=== PATIENT | male | born 1960 | race African-American/Black ===

== ENCOUNTER 2020-10-05 20:44 | Emergency (ER) | payer OTHER ==
--- OUTSIDE RECORDS SUMMARY | 2020-10-05 20:46 | XMS REPORT | Continuity of Care Document ---
:1960 Author Organization [facility] t Address [facility] Rohith Goff [address] [place] [address] Care Team Providers Name Role Phone CORI Attending Clinician Unavailable UNRULY Attending Clinician Unavailable Problems Condition Condition Condition Status Onset Resolution Last Treating Co mments Source Name Details Category Date Date Treatment Clinician Date No No Problem Active [facility] evidence evidence ity of of of [place] diabetic diabetic Physic i retinopath retinopath an s y y Diabetes Diabetes Problem Active Unive rs mellitus mellitus ity of type 2, type 2, [place] uncontroll uncontroll Ph ysici ed ed ans Diabetic Diabetic Problem Active Unive rs neuropathy neuropathy it y of , painful , painful [place] Phys[place] Diabetic Diabetic Problem Active Unive rs retinopath retinopath it y of y y [place] Physici ans HLD HLD Problem Active Univers (hyperlipi (hyperlipi it y of demia) demia) [place] Physici ans HTN HTN Problem Active Univers (hypertens (hypertens it y of ion), ion), [place] benign benign Physici ans Obesity Obesity Problem Active Univers (BMI (BMI ity of 30-39.9) 30-39.9) [place] Physici ans Allergies, Adverse Reactions, Alerts This patient has no known allergies or adverse reactions. Medications Ordered Filled Start Stop Current Ordering Indication Dosage Frequency Signature Comments Components Source Medication Medication Date Date Medication? Clinician (SIG) Name Name Levemir Levemir Yes PATRICIA 60 INJECT 60 Univers FlexTouch FlexTouch 2-14 [place] UNIT it y of 100 UNIT/ML 100 UNIT/ML 00:00: M.D. BEDTIME [place] Subcutaneou Subcutaneou 00 P hysici s Solution s Solution ans Pen-injecto Pen-injecto r r Gabapentin Gabapentin 2020-0 Yes PATRICIA Q0.3333D TAKE 1 Univers 300 MG Oral 300 MG Oral 1-06 [place] CAPSULE BY ity of Capsule Capsule 00:00: M.D. MOUTH 3 [place] 00 TIMES A Physici DAY ans Pravastatin Pravastatin Yes 1 QD TAKE 1 Univers Sodium 40 Sodium 40 TABLET ity of MG Oral MG Oral DAILY [place] Tablet Tablet Physici ans Lisinopril- Lisinopril- Yes QD TAKE 1 Univers hydroCHLORO hydroCHLORO TABLET ity of thiazide thiazide ONCE [place] 20-25 MG 20-25 MG DAILY. Physi ci Oral Tablet Oral Tablet a ns metFORMIN metFORMIN Yes 2 Q0.5D TAKE 2 Un tenisha HCl - 500 HCl - 500 TABLET ity of MG Oral MG Oral TWICE [place] Tablet Tablet DAILY Physici ans traMADol traMADol Yes 1 QD TAKE 1 Unive rs HCl - 50 MG HCl - 50 MG TABLET ity of Oral Tablet Oral Tablet DAILY [place] Physici ans [place] Yes Q0.5D TAKE Univers 7.5-325 MG 7.5-325 MG TABLET i ty of TABS TABS TWICE [place] DAILY Physici ans tiZANidine tiZANidine Yes 1 QD TAKE 1 U nivers HCl - 4 MG HCl - 4 MG TABLET i ty of Oral Tablet Oral Tablet DAILY [place] Physici ans Vital Signs Vital Name Observation Time Observation Value Comments Source BP Systolic 2019-06-24 136 mm[Hg] Location: [facility] 13:23:00 Position: [place] Physician s Sitting BP Diastolic 2019-06-24 85 mm[Hg] Location: [facility] 13:23:00 Position: [place] Physician s Sitting Height 2019-06-24 66.5 [in_us] [facility] :23:00 [place] Physician s Weight 2019-06-24 232.5 [lb_av] [facility] :23:00 [place] Physician s Body Mass Index 2019-06-24 36.96 kg/m2 University o f Calculated 13:23:00 [place] Physician s Temperature 2019-06-24 98.3 [degF] Method: Oral [facility] :: [place] Physician s Heart Rate 2019-06-24 73 /min Location: L [facility] 13::00 Brachial [place] Physician s Artery; Procedures Procedure Date / Time Performed Performing Clinician Sourc e [facility] CMP W/EGFR 2019-06-24 00:00:00 [facility] Physicians [QLH] HEMOGLOBIN A1c 2019-06-24 00:00:00 [facility] Physicians [QLH] LIPID PANEL 2019-06-24 00:00:00 [facility] Physicians [QL] MICROALBUMIN, 2019-06-24 00:00:00 [facility] RANDOM URINE Physicians (W/CREATININE) [QLH] T4, FREE 2019-06-24 00:00:00 [facility] Physicians [QL] TSH, 3RD 2019-06-24 00:00:00 [place] [facility] GENERATION Physicians [QL] VITAMIN D, 2019-06-24 00:00:00 [facility] 25-HYDROXY, LC/MS/MS Physicians History of Hernia [facility] Repair Physicians History of Finger [facility] surgical procedure Physicians Encounters Start End Encounter Admission Attending Care Care Encounter Source Date/Time Date/Time Type Type Clinicians Facility Department ID 2019-09-18 2019-09-18 AppointYENY Lee Multispecia [id number] Univers 13:00:00 13:00:00 t; dayo GOMEZ M.D. [place] AUBREY, Physici M.D. ans 2019-07-31 2019-07-31 Appointmen UNRULY [facility] [id number] Univers 10:30:00 10:30:00 t; FRANCHESKA TOLLIVER ity o f CYNTHIA, R.N. [place] R.N. Physicseth ans 2019-06-24 2019-06-24 AppointYENY Lee Multispecia [id number] Univers 13:00:00 13:00:00 t; dayo GOMEZ M.D. [facility] James Mo M.D. ans Results Test Description Test Time Test Comments Results Result Comments Source Glucose (Point of Care In Office) 2019-06-24 13:36:00 Test Item Value Reference Range Interpretation Comme nts Glucose POC [facility]es[facility] (test code = Glucose POC Lifescan) 215 A [facility] Physicians[O] Hemoglobin A1c (in office)2019-06-24 13:35:00 Test Item Value Reference Range Interpretation Comments HEMOGLOBIN A1c; Abnormal (test code = 13.2 A 4548-4) [facility] PhysiciansNegative Retinal Eye Exam (Diabetic)2018-11-22 06:00:00 Test Item Value Reference Range Interpretation Comments Negative Diabetic Eye Screening 22Nov2018 (test code = Negative Diabetic Eye Screening) [facility] Physicians
[2020-10-05] MEDS ORDERED: NA CHLORIDE 0.9% 1,000 ML ONE (23:30)
[2020-10-05] MEDS ORDERED: ONDANSETRON 4 MG/2 ML VIAL ONE (23:30)
[2020-10-05] MEDS ORDERED: MORPHINE 4 MG/ML SYR ONE (23:30)
[2020-10-06 00:16] LABS: ALT/SGPT 86 U/L (12-78); AST/SGOT 55 U/L (15-37); Albumin 3.2 g/dL (3.4-5.0); Alkaline Phosphatase 123 U/L (45-117); BUN Blood Urea Nitrogen 11 mg/dL (7-18); Bicarbonate 28 mmol/L (21-32); Bilirubin Direct 0.2 mg/dL (0-0.2); Bilirubin Total 0.8 mg/dL (0.2-1.0); Glucose Level 174 mg/dL (74-106); Lipase 32 U/L (73-393); Potassium 4.4 mmol/L (3.5-5.1); Protein, Total 7.1 g/dL (6.4-8.2); Sodium Level 136 mmol/L (136-145)
[2020-10-06 00:29] LABS: SARS-COV-2 RT PCR NEGATIVE (NEGATIVE)
[2020-10-06 00:34] LABS: Absolute Lymphocytes (CBC) 1.8 K/uL (0.7-4.9); Basophils % 0.6 % (0-1.3); Hematocrit 40.8 % (39.6-49.0); Lymphocytes % 9.2 % (15.3-44.8); MPV 10.1 fL (7.6-11.3)
[2020-10-06 00:34] LABS: Urine Blood Negative (Negative); Urine Glucose Trace (Negative); Urine Protein Negative (Negative); Urine pH 6.5 (5.0-7.0)
[2020-10-06 01:34] LABS: Urine RBC <5 /HPF (NONE SEEN); Urine Trichomonas PRESENT (NONE SEEN)
[2020-10-06 01:35] LABS: Urine Bacteria >50 /HPF (NONE SEEN)
--- NOTE | 2020-10-06 01:57 | EDPHYS ---
Physician Documentation [facility] Name: Matias Hudson Age: 60 yrs Sex: Male : 1960 Arrival Date: 10/05/2020 Time: 20:47 Bed 6 Private MD: ED Physician Brian Villarreal HPI: 10/06 00:00 This 60 yrs old Black Male presents to ER via Wheelchair with complaints of Decreased pm1 Appetite, Pain All Over. 00:00 The patient presents with urinary symptoms, burning with urination. Onset: The pm1 symptoms/episode began/occurred 8 day(s) ago. Modifying factors: The symptoms are alleviated by nothing, the symptoms are aggravated by urinating. Associated signs and symptoms: Pertinent positives: fever, flank pain, suprapubic pain. Severity of symptoms: in the emergency department the symptoms are actually worse. The patient has not experienced similar symptoms in the past. The patient has not recently seen a physician, the patient's primary care provider is Dr. Valentino. Historical: - Allergies: 10/05 21:29 No Known Allergies; jb4 - Home Meds: 21:29 Flomax Oral [Active]; Lisinopril Oral [Active]; Metformin Oral [Active]; gabapentin jb4 oral oral [Active]; - PMHx: 21:29 Diabetes - NIDDM; Hypertension; Chronic pain; BPH; jb4 - PSHx: 21:29 finger surgery; Hernia repair; jb4 - Immunization history:: Adult Immunizations unknown. - Social history:: Smoking status: Patient reports the use of cigarette tobacco products, denies chronic smoking, but will smoke occasionally, Patient/guardian denies using alcohol, street drugs. ROS: 10/06 00:00 Neck: Negative for injury, pain, and swelling, Cardiovascular: Negative for chest pain, pm1 palpitations, and edema, Respiratory: Negative for shortness of breath, cough, wheezing, and pleuritic chest pain. MS/Extremity: Negative for injury and deformity, Skin: Negative for injury, rash, and discoloration, Neuro: Negative for headache, weakness, numbness, tingling, and seizure. Constitutional: Positive for body aches, chills, Negative for poor PO intake. Abdomen/GI: Positive for abdominal pain, of the suprapubic area, Vomiting x 2, Negative for diarrhea, constipation. Back: Positive for flank pain, on the left. : Positive for burning with urination, Negative for penile discharge. Exam: 00:00 Constitutional: This is a well developed, well nourished patient who is awake, alert, pm1 and in no acute distress. Head/Face: Normocephalic, atraumatic. 00:00 Back: No spinal tenderness. No costovertebral tenderness. Full range of motion. Skin: Warm, dry with normal turgor. Normal color with no rashes, no lesions, and no evidence of cellulitis. MS/ Extremity: Pulses equal, no cyanosis. Neurovascular intact. Full, normal range of motion. 00:00 Cardiovascular: Exam negative for acute changes, Rate: normal, Rhythm: regular, Pulses: no pulse deficits are appreciated. 00:00 Respiratory: Exam negative for acute changes, respiratory distress, shortness of breath. 00:00 Abdomen/GI: Inspection: abdomen appears normal, Palpation: soft, in all quadrants, mild abdominal tenderness, in the suprapubic area. 00:00 Neuro: Exam negative for acute changes, Orientation: is normal, Mentation: is normal, Motor: is normal, moves all fours. Vital Signs: 10/05 21:25 BP 152 / 95; Pulse 100; Resp 17; Temp 99.3(O); Pulse Ox 98% on R/A; Weight 81.65 kg; jb4 Height 5 ft. 11 in. (180.34 cm); Pain 10/10; 23:44 BP 113 / 68; Pulse 86; Resp 18; Pulse Ox 100% on R/A; mg2 10/06 01:11 BP 141 / 84; Pulse 82; Resp 18; Pulse Ox 99% on R/A; mg2 02:26 BP 137 / 82; Pulse 83; Resp 18; Pulse Ox 98% on R/A; wh 10/05 21:25 Body Mass Index 25.10 (81.65 kg, 180.34 cm) jb4 MDM: 10/05 23:00 Patient medically screened. [facility] 10/06 01:55 Data reviewed: vital signs. Data interpreted: Pulse oximetry: on room air is 99 %. pm1 Interpretation: normal. Counseling: I had a detailed discussion with the patient and/or guardian regarding: the historical points, exam findings, and any diagnostic results supporting the discharge/admit diagnosis, lab results, radiology results, the need for outpatient follow up, to return to the emergency department if symptoms worsen or persist or if there are any questions or concerns that arise at home. 01:55 ED course: Offered admission to the patient. He would like to go home. Discussed return pm1 precautions with the patient and his . 10/05 23:07 Order name: Basic Metabolic Panel; Complete Time: 00:28 pm1 10/05 23:07 Order name: CBC with Diff; Complete Time: 00:44 pm1 10/05 23:07 Order name: Hepatic Function; Complete Time: 00:28 pm1 10/05 23:07 Order name: Lipase; Complete Time: 00:28 pm1 10/05 23:07 Order name: Urine Microscopic Only; Complete Time: 01:53 pm1 10/05 23:07 Order name: CT Abd/Pelvis - IV Contrast Only pm1 10/06 00:29 Order name: COVID-19/FLU A+B; Complete Time: 00:44 EDMS 10/06 00:33 Order name: Urine Dipstick-Ancillary; Complete Time: 00:44 EDMS 10/06 01:36 Order name: Urine Culture [facility] 10/05 23:07 Order name: IV Saline Lock; Complete Time: 23:43 pm1 10/05 23:07 Order name: Labs collected and sent; Complete Time: 23:43 pm1 10/05 23:07 Order name: Urine Dipstick-Ancillary (obtain specimen); Complete Time: 00:33 pm1 Administered Medications: 10/05 23:42 Drug: morphine 4 mg Route: IVP; Site: left forearm; [facility] 10/06 02:28 Follow up: Response: No adverse reaction; Pain is decreased; RASS: Alert and Calm (0) 10/05 23:42 Drug: Zofran (Ondansetron) 4 mg Route: IVP; Site: left forearm; mg2 10/06 02:28 Follow up: Response: No adverse reaction 10/05 23:42 Drug: NS 0.9% 1000 ml Route: IV; Rate: 1000 ml; Site: left forearm; mg2 10/06 02:28 Follow up: IV Status: Completed infusion 02:13 Drug: Rocephin (cefTRIAXone) 1 grams Route: IV; Rate: calculated rate; Site: left wh forearm; 02:27 Follow up: Response: No adverse reaction; IV Status: Completed infusion 02:13 Drug: Flagyl (metroNIDAZOLE) 2 grams Route: PO; 02:27 Follow up: Response: No adverse reaction Disposition: 10:41 Co-signature as Attending Physician, Brian Villarreal MD I agree with the assessment and [facility] plan of care. Disposition: 10/06/20 01:56 Discharged to Home. Impression: Trichomoniasis, Urinary tract infection, site not specified. - Condition is Stable. - Discharge Instructions: Trichomoniasis, Urinary Tract Infection, Adult. - Prescriptions for Cipro 500 mg Oral Tablet - take 1 tablet by ORAL route every 12 hours for 10 days; 20 tablet. Tylenol- Codeine #3 300-30 mg Oral Tablet - take 2 tablets by ORAL route every 4-6 hours As needed; 20 tablet. Zofran ODT 4 mg Oral tablet,disintegrating - place 1 tablet by TRANSLINGUAL route every 8 hours As needed; 12 tablet. - Medication Reconciliation Form, Thank You Letter, Antibiotic Education, Prescription Opioid Use form. - Follow up: Emergency Department; When: As needed; Reason: Worsening of condition. Follow up: Private Physician; When: 2 - 3 days; Reason: Recheck today's complaints, Continuance of care, Re-evaluation by your physician. - Problem is new. - Symptoms have improved. Signatures: Dispatcher [employer] Brian Knight MD MD cha Marinas, Patrick, JAIDA AUTO TRANSMISSION TECHNICIAN pm1 Sandro Moran RN RN jb4 Андрей Valdez RN RN Alexis Zamudio RN RN mg2 Corrections: (The following items were deleted from the chart) 10/05 23:31 23:08 CORONAVIRUS+MR.LAB.BRZ ordered. [facility] 23:32 23:08 Influenza Screen (A \T\ B)+BA.LAB.BRZ ordered. [facility] 10/06 02:28 01:56 10/06/2020 01:56 Discharged to Home. Impression: Trichomoniasis; Urinary tract infection, site not specified. Condition is Stable. Forms are Medication Reconciliation Form, Thank You Letter, Antibiotic Education, Prescription Opioid Use. Follow up: Emergency Department; When: As needed; Reason: Worsening of condition. Follow up: Private Physician; When: 2 - 3 days; Reason: Recheck today's complaints, Continuance of care, Re-evaluation by your physician. Problem is new. Symptoms have improved. pm1
--- NOTE | 2020-10-06 01:57 | ER ---
Nurse's Notes [facility] Name: Matias Hudson Age: 60 yrs Sex: Male : 1960 Arrival Date: 10/05/2020 Time: 20:47 Bed 6 Private MD: Diagnosis: Trichomoniasis;Urinary tract infection, site not specified Presentation: 10/05 21:23 Chief complaint: Patient states: something is wrong with my stomach and the Dr took me jb4 off all my medications 8 months ago and I have high blood pressure and I am diabetic. I couldn't see the Dr because I didn't go to see him for a check up. Now my back is hurting and when I urinate it baker. It has been going on for 2 to 3 weeks. Coronavirus screen: Client denies travel out of the [place] in the last 14 days. Ebola Screen: Patient negative for fever greater than or equal to 101.5 degrees Fahrenheit, and additional compatible Ebola Virus Disease symptoms Patient denies exposure to infectious person. Patient denies travel to an Ebola-affected area in the 21 days before illness onset. Initial Sepsis Screen: Does the patient meet any 2 criteria? No. Patient's initial sepsis screen is negative. Does the patient have a suspected source of infection? No. Patient's initial sepsis screen is negative. Risk Assessment: Do you want to hurt yourself or someone else? Patient reports no desire to harm self or others. Onset of symptoms is unknown. 21:23 Method Of Arrival: Wheelchair jb4 21:23 Acuity: LONG 3 jb4 Historical: - Allergies: 21:29 No Known Allergies; jb4 - Home Meds: 21:29 Flomax Oral [Active]; Lisinopril Oral [Active]; Metformin Oral [Active]; gabapentin jb4 oral oral [Active]; - PMHx: 21:29 Diabetes - NIDDM; Hypertension; Chronic pain; BPH; jb4 - PSHx: 21:29 finger surgery; Hernia repair; jb4 - Immunization history:: Adult Immunizations unknown. - Social history:: Smoking status: Patient reports the use of cigarette tobacco products, denies chronic smoking, but will smoke occasionally, Patient/guardian denies using alcohol, street drugs. Screenin:44 Abuse screen: Denies threats or abuse. Denies injuries from another. Nutritional mg2 screening: No deficits noted. Tuberculosis screening: No symptoms or risk factors identified. Fall Risk IV access (20 points). Assessment: 23:43 General: Appears in no apparent distress. comfortable, Behavior is calm, cooperative. mg2 Pain: Complains of pain in abdomen and testicles. Neuro: Level of Consciousness is awake, alert, obeys commands, Oriented to person, place, time, situation. Cardiovascular: Capillary refill < 3 seconds Patient's skin is warm and dry. Respiratory: Airway is patent Respiratory effort is even, unlabored, Respiratory pattern is regular, symmetrical. GI: Reports lower abdominal pain, upper abdominal pain. : Reports burning with urination, pain testicle. EENT: No signs and/or symptoms were reported regarding the EENT system. Derm: Skin is intact, is healthy with good turgor, Skin is pink, warm \T\ dry. normal. Musculoskeletal: Circulation, motion, and sensation intact. Capillary refill < 3 seconds. 10/06 01:11 Reassessment: Patient appears in no apparent distress at this time. Patient and/or mg2 family updated on plan of care and expected duration. Pain level reassessed. Patient is alert, oriented x 3, equal unlabored respirations, skin warm/dry/pink. 02:26 Reassessment: Patient appears in no apparent distress at this time. Patient and/or wh family updated on plan of care and expected duration. Pain level reassessed. Patient is alert, oriented x 3, equal unlabored respirations, skin warm/dry/pink. Vital Signs: 10/05 21:25 BP 152 / 95; Pulse 100; Resp 17; Temp 99.3(O); Pulse Ox 98% on R/A; Weight 81.65 kg; jb4 Height 5 ft. 11 in. (180.34 cm); Pain 10/10; 23:44 BP 113 / 68; Pulse 86; Resp 18; Pulse Ox 100% on R/A; mg2 10/06 01:11 BP 141 / 84; Pulse 82; Resp 18; Pulse Ox 99% on R/A; mg2 02:26 BP 137 / 82; Pulse 83; Resp 18; Pulse Ox 98% on R/A; wh 10/05 21:25 Body Mass Index 25.10 (81.65 kg, 180.34 cm) [facility] ED Course: 10/05 20:47 Patient arrived in ED. cl3 21:25 Triage completed. jb4 21:29 Arm band placed on right wrist. jb4 22:54 Anoop Smith NP is PHCP. pm1 22:54 Brian Villarreal MD is Attending Physician. pm1 23:10 Alexis Zamudio RN is Primary Nurse. mg2 23:40 Inserted saline lock: 20 gauge in left forearm, using aseptic technique. Blood mg2 collected. 23:44 Patient has correct armband on for positive identification. Pulse ox on. NIBP on. mg2 23:44 No provider procedures requiring assistance completed. mg2 10/06 00:54 CT Abd/Pelvis - IV Contrast Only In Process Unspecified. EDMS 02:27 IV discontinued, intact, bleeding controlled, No redness/swelling at site. Administered Medications: 10/05 23:42 Drug: morphine 4 mg Route: IVP; Site: left forearm; [facility] 10/06 02:28 Follow up: Response: No adverse reaction; Pain is decreased; RASS: Alert and Calm (0) 10/05 23:42 Drug: Zofran (Ondansetron) 4 mg Route: IVP; Site: left forearm; [facility] 10/06 02:28 Follow up: Response: No adverse reaction 10/05 23:42 Drug: NS 0.9% 1000 ml Route: IV; Rate: 1000 ml; Site: left forearm; [facility] 10/06 02:28 Follow up: IV Status: Completed infusion 02:13 Drug: Rocephin (cefTRIAXone) 1 grams Route: IV; Rate: calculated rate; Site: left forearm; 02:27 Follow up: Response: No adverse reaction; IV Status: Completed infusion 02:13 Drug: Flagyl (metroNIDAZOLE) 2 grams Route: PO; 02:27 Follow up: Response: No adverse reaction Outcome: 01:56 Discharge ordered by MD. pm1 02:27 Discharged to home ambulatory, with family. 02:27 Condition: stable 02:27 Discharge instructions given to patient, family, Instructed on discharge instructions, follow up and referral plans. no drinking with medication, no driving heavy equipment, medication usage, POC Demonstrated understanding of instructions, follow-up care, medications, POC Prescriptions given X 3. 02:28 Patient left the ED. Signatures: Dispatcher [employer] EDWA Anoop Smith NP CASH REGISTER OPERATOR pm1 Sandro Moran, RN RN jb4 Андрей Valdez, RN RN wh Alexis Zamudio, RN RN mg2 Cy Haider cl3
[2020-10-06] MEDS ORDERED: metroNIDAZOLE 500 MG TABLET ONE (02:18)
[2020-10-06] MEDS ORDERED: CEFTRIAXONE/SWI 1gm 1 GM/10 ML SYR ONE (02:19)
[2020-10-06 04:24] VITALS: TEMP 99.3
[2020-10-06 04:28] VITALS: BP 137/82; O2SAT 98
--- NOTE | 2020-10-06 11:33 | RAD REPORT ---
EXAM DESCRIPTION: CT - Abdomen Pelvis W Contrast - 10/06/2020 7:05 am CLINICAL HISTORY: The patient is 60 years old and is Male; dysuria;Flank pain;Fever TECHNIQUE: Axial computed tomography images of the abdomen and pelvis with intravenous contrast. S agittal and coronal reformatted images were created and reviewed. This CT exam was performed using one or more of the following dose reduction techniques: automated exposure control, adjustment of t he mA and/or kV according to patient size, and/or use of iterative reconstruction technique. COMPARISON: CT abdomen pelvis 03/05/2019. FINDINGS: Lung bases: Unremarkable. No mass. No consolidation. ABDOMEN: Liver: Unremarkable. No mass. Gallbladder and bile ducts: Unremarkable. No calcified stones. No ductal dilation. Pancreas: Unremarkable. No mass. No ductal dilation. Spleen: Unremarkable. No splenomegaly. Adrenals: Redemonstration of a prominent appearing left adrenal gland and possibly underlying 1 c m indeterminate adrenal nodule. Consider adrenal protocol CT for further evaluation if clinically ind icated. Kidneys and ureters: Mild bilateral renal pelviectasis. Stable 2 cm simple appearing right renal cyst which requires no imaging follow-up. No hydronephrosis. Stomach and bowel: Unremarkable. No obstruction. No mucosal thickening. PELVIS: Appendix: No findings to suggest acute appendicitis. Bladder: There may be mild bladder wall thickening anteriorly. Reproductive: Unremarkable as visualized. ABDOMEN and PELVIS: Intraperitoneal space: Unremarkable. No free air. No significant fluid collection. Bones/joints: No acute fracture. No dislocation. Soft tissues: Unremarkable. Vasculature: Scattered atherosclerotic vascular calcifications. No abdominal aortic aneurysm. Lymph nodes: Unremarkable. No enlarged lymph nodes. IMPRESSION: 1. Mild bilateral renal pelviectasis. 2. There may be mild bladder wall thickening anteriorly. Electronically signed by: Clay Bright MD 10/06/2020 1:26 AM CDT Due to temporary technical issues with the PACS/Fluency reporting system, reports are being signed by the in house radiologists without review as a courtesy to insure prompt reporting. The interpreting radiologist is fully responsible for the content of the report.
== END 2020-10-06 02:28 | disposition home or self-care (01) ==
LOC: ER 20:44
DX: N39.0 Urinary tract infection, site not specified (principal); A59.9 Trichomoniasis, unspecified; I10 Essential (primary) hypertension; E11.9 Type 2 diabetes mellitus without complications; Z20.822 Contact with and (suspected) exposure to COVID-19
CPT/HCPCS: 87088; 85025; 87086; 80048; 36415; 80076; 83690; 0240U; 74177; Q9967; J0696; J7030; J2405; 81003; 81015; 96361; 96374; 96375; 99284

== ENCOUNTER 2020-10-20 21:37 | Emergency (ER) | payer OTHER ==
--- OUTSIDE RECORDS SUMMARY | 2020-10-20 21:40 | XMS REPORT | Continuity of Care Document ---
:[address] [facility] t Address [facility] [address] [place] [address] Care Team Providers Name Role Phone CORI [...] (hypertens (hypertens it y of ion), ion), [place] benign benign Physici ans Obesity Obesity Problem [...] Tablet Oral Tablet DAILY [place] [facility] [place] Bowdon Yes Q0.5D TAKE Univers 7.5-325 MG 7.5-325 MG TABLET i ty of TABS TABS TWICE [place] DAILY Physici ans tiZANidine tiZANidine Yes 1 QD TAKE 1 U nivers HCl - 4 MG HCl - 4 MG TABLET i ty of Oral Tablet Oral Tablet DAILY [place] Physici ans Vital Signs Vital Name Observation Time Observation Value Comments Source BP Systolic 2019-06-24 136 mm[Hg] Location: [facility] 13:23:00 Position: [place] Physician s Sitting BP Diastolic 2019-06-24 85 mm[Hg] Location: [facility] 13:23:00 Position: [place] Physician s Sitting Height 2019-06-24 66.5 [in_us] [facility] :23:00 [place] Physician s Weight 2019-06-24 232.5 [lb_av] [facility] :23:00 [place] Physician s Body Mass Index 2019-06-24 36.96 kg/m2 University o f Calculated 13:23:00 [place] Physician s Temperature 2019-06-24 98.3 [degF] Method: Oral [facility] :: [place] Physician s Heart Rate 2019-06-24 73 /min Location: L [facility] 13::00 Brachial [place] Physician s Artery; Procedures Procedure Date / Time Performed Performing Clinician Sourc e [[facility]] CMP W/EGFR 2019-06-24 00:00:00 [facility] Physicians [QL] HEMOGLOBIN A1c 2019-06-24 00:00:00 [facility] Physicians [QL] LIPID PANEL 2019-06-24 00:00:00 [facility] Physicians [QL] MICROALBUMIN, 2019-06-24 00:00:00 [facility] RANDOM URINE Physicians (W/CREATININE) [QL] T4, FREE 2019-06-24 00:00:00 [place] [facility] Physicians [QL] TSH, 3RD 2019-06-24 00:00:00 [place] f [place] GENERATION Physicians [QL] VITAMIN D, 2019-06-24 00:00:00 [facility] 25-HYDROXY, LC/MS/MS Physicians History of Hernia [facility] Repair Physicians History of Finger [facility] surgical procedure Physicians Encounters Start End Encounter Admission Attending Care Care Encounter Source Date/Time Date/Time Type Type Clinicians Facility Department ID 2019-09-18 2019-09-18 AppointYENY Lee Multispecia [id number] [facility] 13:00:00 13:00:00 t; dayo GOMEZ M.D. [place] AUBREY, Physici M.D. ans 2019-07-31 2019-07-31 Appointmen [facility] [id number] Univers 10:30:00 10:30:00 t; FRANCHESKA TOLLIVER ity o f CYNTHIA, R.N. [place] R.N. Physicseth ans 2019-06-24 2019-06-24 AppointYENY Lee Multispecia [id number] Univers 13:00:00 13:00:00 t; dayo GOMEZ M.D. [facility] James GOMEZ M.D. ans Results Test Description Test Time Test Comments Results Result Comments Source Glucose (Point of Care In Office) 2019-06-24 13:36:00 Test Item Value Reference Range Interpretation Comme nts Glucose POC Lifescan (test code = Glucose POC Lifescan) 215 A [facility] Physicians[O] Hemoglobin A1c (in office)2019-06-24 13:35:00 Test Item Value Reference Range Interpretation Comments HEMOGLOBIN A1c; Abnormal (test code = 13.2 A 4548-4) [facility] PhysiciansNegative Retinal Eye Exam (Diabetic)2018-11-22 06:00:00 Test Item Value Reference Range Interpretation Comments Negative Diabetic Eye Screening [id number] (test code = Negative Diabetic Eye Screening) [facility] Physicians
[2020-10-20 23:03] LABS: Urine Blood Negative (Negative); Urine Glucose Negative (Negative); Urine Protein Negative (Negative); Urine pH 5.5 (5.0-7.0)
[2020-10-20 23:18] LABS: Urine Mucus 2+ /HPF (NONE SEEN)
[2020-10-20 23:19] LABS: Urine Bacteria <20 /HPF (NONE SEEN); Urine RBC <5 /HPF (NONE SEEN)
--- NOTE | 2020-10-20 23:25 | EDPHYS ---
Physician Documentation [facility] Name: Matias Hudson Age: 60 yrs Sex: Male : 1960 Arrival Date: 10/20/2020 Time: 21:41 Bed 15 Private MD: Jack Valentino ED Physician Surya Nieto HPI: 10/20 22:33 This 60 yrs old Black Male presents to ER via Wheelchair with complaints of Syncope, rn Urinary Retention. 22:33 The patient presents with urinary symptoms, retention, unable to void. Onset: The rn symptoms/episode began/occurred today. Modifying factors: The symptoms are alleviated by nothing, the symptoms are aggravated by nothing. Severity of symptoms: At their worst the symptoms were moderate, in the emergency department the symptoms are unchanged. The patient has experienced similar episodes in the past. The patient has been recently seen by a physician:. Reports just had catheter pulled out today at Dr. Rm's office, not able to urinate since then. NO fever. + known enlarged prostate.. Historical: - Allergies: 22:15 No Known Allergies; jb4 - Home Meds: 22:15 Flomax Oral [Active]; gabapentin Oral [Active]; lisinopril Oral [Active]; Metformin jb4 Oral [Active]; - PMHx: 22:15 BPH; Chronic pain; Diabetes - NIDDM; Hypertension; jb4 - PSHx: 22:15 finger surgery; Hernia repair; jb4 - Immunization history:: Adult Immunizations up to date. - Social history:: Smoking status: Patient reports the use of cigarette tobacco products, smokes .3 packs per day, Patient/guardian denies using alcohol, street drugs. - Family history:: not pertinent. - Hospitalizations: : No recent hospitalization is reported. ROS: 22:33 Constitutional: Negative for fever, chills, and weight loss, Eyes: Negative for injury, rn pain, redness, and discharge, Abdomen/GI: + suprapubic pain : + inability to urinate Neuro: Negative for weakness, numbness, tingling Exam: 22:33 Constitutional: This is a well developed, well nourished patient who is awake, alert, rn and in no acute distress. Abdomen/GI: soft, + suprapubic fullness Male : + focal tenderness of scrotum or skin changes Vital Signs: 22:12 BP 121 / 62; Pulse 100; Resp 18; Temp 98.8(TE); Pulse Ox 98% on R/A; Weight 83.01 kg jb4 (R); Height 5 ft. 11 in. (180.34 cm); Pain 10/10; 23:54 BP 117 / 64; Pulse 84; Resp 16; Pulse Ox 98% on R/A; jm8 22:12 Body Mass Index 25.52 (83.01 kg, 180.34 cm) jb4 MDM: 22:22 Patient medically screened. rn 23:23 Differential diagnosis: UTI, urinary retention, prostatitis, urethritis. Data reviewed: rn vital signs, nurses notes, lab test result(s), and as a result, I will discharge patient. Counseling: I had a detailed discussion with the patient and/or guardian regarding: the historical points, exam findings, and any diagnostic results supporting the discharge/admit diagnosis, the need for outpatient follow up, to return to the emergency department if symptoms worsen or persist or if there are any questions or concerns that arise at home. Response to treatment: the patient's symptoms have markedly improved after treatment, and as a result, I will discharge patient. Special discussion: I discussed with the patient/guardian in detail that at this point there is no indication for admission to the hospital. It is understood, however, that if the symptoms persist or worsen the patient needs to return immediately for re-evaluation. Based on the history and exam findings, there is no indication for further emergent testing or inpatient evaluation. I discussed with the patient/guardian the need to see the urologist for further evaluation of the symptoms. 10/20 22:32 Order name: Urine Culture rn 10/20 22:32 Order name: Urine Microscopic Only; Complete Time: 23:23 rn 10/20 22:32 Order name: Urine Dipstick-Ancillary (obtain specimen); Complete Time: 23:10 rn 10/20 22:32 Order name: Whitney; Complete Time: 23:09 rn 10/20 23:02 Order name: Urine Dipstick-Ancillary; Complete Time: 23:23 EDMS Administered Medications: No medications were administered Disposition: 10/20/20 23:25 Discharged to Home. Impression: Retention of urine, unspecified. - Condition is Stable. - Discharge Instructions: Whitney Catheter Care, Adult, Acute Urinary Retention, Male. - Medication Reconciliation Form, Thank You Letter, Antibiotic Education, Prescription Opioid Use form. - Follow up: Mati Peck MD; When: As needed; Reason: Recheck today's complaints, Re-evaluation by your physician. - Problem is an ongoing problem. - Symptoms have improved. Signatures: Dispatcher [employer] EDMN Surya Nieto MD MD rn Bryson, James, RN RN jb4 Bud Garcia RN RN jm8 Corrections: (The following items were deleted from the chart) 23:53 23:25 10/20/2020 23:25 Discharged to Home. Impression: Retention of urine, unspecified. jm8 Condition is Stable. Forms are Medication Reconciliation Form, Thank You Letter, Antibiotic Education, Prescription Opioid Use. Follow up: Mati Peck; When: As needed; Reason: Recheck today's complaints, Re-evaluation by your physician. Problem is an ongoing problem. Symptoms have improved. rn
--- NOTE | 2020-10-20 23:25 | ER ---
Nurse's Notes [facility] Name: Matias Hudson Age: 60 yrs Sex: Male : 1960 Arrival Date: 10/20/2020 Time: 21:41 Bed 15 Private MD: Jack Valentino Diagnosis: Retention of urine, unspecified Presentation: 10/20 22:12 Chief complaint: Patient states: The pulled the urinary catheter at 1 pm. I have not jb4 been able to urinate since and and when I went to use the restroom I passed out pulling my pants down. Coronavirus screen: Client denies travel out of the [place] in the last 14 days. At this time, the client does not indicate any symptoms associated with coronavirus-19. Ebola Screen: No symptoms or risks identified at this time. Initial Sepsis Screen: Does the patient meet any 2 criteria? No. Patient's initial sepsis screen is negative. Does the patient have a suspected source of infection? No. Patient's initial sepsis screen is negative. Risk Assessment: Do you want to hurt yourself or someone else? Patient reports no desire to harm self or others. Onset of symptoms was October 20, 2020. 22:12 Method Of Arrival: Wheelchair jb4 22:12 Acuity: LONG 2 jb4 Historical: - Allergies: 22:15 No Known Allergies; jb4 - Home Meds: 22:15 Flomax Oral [Active]; gabapentin Oral [Active]; lisinopril Oral [Active]; Metformin jb4 Oral [Active]; - PMHx: 22:15 BPH; Chronic pain; Diabetes - NIDDM; Hypertension; jb4 - PSHx: 22:15 finger surgery; Hernia repair; jb4 - Immunization history:: Adult Immunizations up to date. - Social history:: Smoking status: Patient reports the use of cigarette tobacco products, smokes .3 packs per day, Patient/guardian denies using alcohol, street drugs. - Family history:: not pertinent. - Hospitalizations: : No recent hospitalization is reported. Screenin:08 Abuse screen: Denies threats or abuse. Denies injuries from another. Nutritional jm8 screening: No deficits noted. Tuberculosis screening: No symptoms or risk factors identified. Fall Risk None identified. Assessment: 23:03 General: Appears in no apparent distress. uncomfortable, Behavior is calm, cooperative. jm8 Pain: Complains of pain in abdomen and pelvis Pain currently is 10 out of 10 on a pain scale. Alleviated by urination. Neuro: No deficits noted. Level of Consciousness is awake, alert, obeys commands, Oriented to person, place, time. Cardiovascular: No deficits noted. Respiratory: No deficits noted. Respiratory: Airway is patent Trachea midline. GI: No deficits noted. : Reports inability to void. EENT: No deficits noted. Derm: No deficits noted. Musculoskeletal: No deficits noted. 23:09 Cardiovascular: Rhythm is regular. 8 Vital Signs: 22:12 BP 121 / 62; Pulse 100; Resp 18; Temp 98.8(TE); Pulse Ox 98% on R/A; Weight 83.01 kg jb4 (R); Height 5 ft. 11 in. (180.34 cm); Pain 10/10; 23:54 BP 117 / 64; Pulse 84; Resp 16; Pulse Ox 98% on R/A; jm8 22:12 Body Mass Index 25.52 (83.01 kg, 180.34 cm) jb4 ED Course: 21:41 Patient arrived in ED. es 21:42 Jack Valentino MD is Private Physician. es 22:14 Triage completed. jb4 22:15 Arm band placed on right wrist. jb4 22:22 Surya Nieto MD is Attending Physician. rn 23:08 No provider procedures requiring assistance completed. Patient did not have IV access jm8 during this emergency room visit. 23:09 Patient has correct armband on for positive identification. Bed in low position. Call jm8 light in reach. Side rails up X2. Adult w/ patient. 23:10 Rodriguez cath inserted, using sterile technique, 16 Fr., by mi, balloon inflated, urine jm8 specimen collected. returned cloudy urine. Patient tolerated well. 23:24 Mati Peck MD is Referral Physician. rn Administered Medications: No medications were administered Outcome: 23:25 Discharge ordered by . rn 23:[address] [facility] 23:52 Condition: good 23:52 Discharge instructions given to patient, family, Instructed on discharge instructions, follow up and referral plans. 23:53 Patient left the ED. jm8 Addendum: 10/25/2020 13:13 Addendum: Culture Results: Positive urine culture. Phone call Attempt #1 Attempted to s s call patient. No answer. Unable to leave . Pt has indwelling rodriguez in place and was instructed to follow up with urologist Dr. Pcek upon discharge. 13:38 Addendum: Other called back stating that patient was seen at [facility] two s s days after visit and transferred to [place] for Emergency scrotal surgery. Signatures: Ana Laura Holder Roman, MD MD rn [facility] HospitalSteff RN RN Sandro Moran RN RN jb4 Bud Garcia RN RN jm8
[2020-10-21 00:28] VITALS: BP 121/62; TEMP 98.8; O2SAT 98
== END 2020-10-20 23:53 | disposition home or self-care (01) ==
LOC: ER 21:37
DX: R33.9 Retention of urine, unspecified (principal); I10 Essential (primary) hypertension; N40.0 Benign prostatic hyperplasia without lower urinary tract symptoms; E11.9 Type 2 diabetes mellitus without complications; F17.210 Nicotine dependence, cigarettes, uncomplicated
CPT/HCPCS: 51702; 81003; 81015; 87077; 87086; 87088; 87186; 99284